=== PATIENT | female | born 1955 | race Hispanic/Latino ===

== ENCOUNTER 2019-12-16 14:56 | Inpatient (IN) | payer MEDICARE ==
[2019-12-16] MEDS ORDERED: DEXTROSE 50% IN WATER (25GM) 50 ML SYRINGE IV ONE ×2 (15:00→22:55)
[2019-12-16] MEDS ORDERED: SODIUM BICARB 8.4% 50 MEQ/50 ML SYRINGE IV ONE ×2 (15:00→19:25)
[2019-12-16] MEDS ORDERED: CALCIUM CHLORIDE 1,000 MG/10 ML SYRINGE IV ONE (15:00)
[2019-12-16] MEDS ORDERED: ATROPINE 0.1% (1 MG/10 ML) CARDIAC SYRINGE ONE (15:00)
[2019-12-16] MEDS ORDERED: EPINEPHrine 1:10,000 1 MG/10 ML SYRINGE ONE ×2 (15:00→19:25)
[2019-12-16] MEDS ORDERED: ALBUTEROL 2.5 MG/3 ML NEBU IH ONE ×8 (15:20→17:11)
[2019-12-16] MEDS ORDERED: NORepinephrine/NS 4 MG-250 ML 4 MG/250 ML BAG IV ONE ×2 (15:36→18:22)
[2019-12-16] MEDS ORDERED: NORepinephrine/NS 4 MG-250 ML 4 MG/250 ML BAG IV SCH ×2 (15:40→18:30)
[2019-12-16 15:58] LABS: Hematocrit 21.2 % (30.3-42.9); Hemoglobin 7.2 gm/dl (10.1-14.3); Mean Corpuscular HGB Conc 34 % (30-34); Mean Corpuscular Volume 88 fl (79-97); Platelet Count 141 K/mm3 (140-440); Red Blood Count 2.42 M/mm3 (3.65-5.03); Red Cell Distribution Width 15.1 % (13.2-15.2)
--- NOTE | 2019-12-16 16:00 | Emergency Department Report ---
HPI - General Time Seen by Provider: 12/16/19 15:28 - HPI HPI: Room 18 The patient is a 64-year-old female present with a chief complaint of decreased responsiveness. The patient's last known well time was approximate 5 days ago when the patient's son spoke with her over the phone. The son states he had not heard from her so he sent someone to check on the patient and the patient was found unresponsive lying on her floor covered in dark-colored stool. Is uncertain how long she has been in this position. EMS transported the patient states she had agonal respirations. Upon arrival to the ED the patient had agonal respirations and was not responding and had a decreased gag reflex, subsequently the decision to intubate using RSI was made. After intubation the patient became bradycardic and then went into cardiac arrest. ACLS protocol were initiated including suspected hyperkalemia from rhabdomyolysis and GI bleed with subsequent return of spontaneous circulation. The patient briefly arrested a second time there was return of spontaneous circulation. ED Past Medical Hx - Past Medical History Hx Hypertension: Yes Hx Psychiatric Treatment: Yes (Paranoid schizophrenia) - Surgical History Past Surgical History?: No - Family History Family history: no significant - Social History Smoking Status: Current Every Day Smoker Substance Use Type: None ED Review of Systems ROS: Stated complaint: PHIL Other details as noted in HPI Comment: Unobtainable due to pts medical conditions Physical Exam - Physical Exam Physical Exam: GENERAL: The patient is well-developed pale female with agonal respirations on the stretcher not responding. Patient has a dark-colored dried liquid surrounding her mouth and on her clothing HEENT: Normocephalic. Atraumatic. Extraocular motions are intact. Patient has moist mucous membranes. NECK: Trachea midline CHEST/LUNGS: Clear to auscultation. Agonal respiration HEART/CARDIOVASCULAR: Regular. There is no tachycardia. There is no gallop rub or murmur. ABDOMEN: Abdomen is soft, nontender. Patient has normal bowel sounds. There is no abdominal distention. SKIN: Patient is pale NEURO: The patient is lethargic with agonal respiration MUSCULOSKELETAL: There is no evidence of acute injury. ED Course - Consultations Consultation #1: 12/16/19 16:17 Nephrology paged 12/16/19 16:[address] Greene-recommends Kayexalate 30 g. States she will reach out to vascular surgery to place a Vas-Cath and initiate hemodialysis - Central Line Placement Right Femoral Consent Obtained: emergent situation Time Out Performed: No Patient Placed on Monitor/Pulse Ox: Yes MD Prep: mask, gown, gloves Central Line Prep: Chlorhexidine scrub Local Anesthesia Used: Lidocaine 1% Amount of Anesthesia Used (mls): 3 Ultrasound Used for Placement: No Central Line Lumen Inserted: triple Bloods Obtained for Lab: Yes Central Line Position: good blood return, all ports aspirated, flus, other (Line secured with adhesive) Dressing Applied: Tegaderm Patient Tolerated Procedure: no complications Complications: none - Intubation Time Out Performed: Yes Sedative: Etomidate Mg Given: 20 Paralytic: Succinylcholine Mg Given: 100 (Patient was also given lidocaine 100 mg IV) Laryngoscope: Renee Size: 3 ET Tube Size: 7 Tube Secured Depth (cm): 21 Tube Secured Location: lips Tube Placement Confirmation: visualized tube passing t, equal breath sounds bilat, no breath sounds over epi, confirmation by capnometr Patient Tolerated Procedure: no complications Intubation Complications: none ED Medical Decision Making - Lab Data Result diagrams: 12/16/19 15:49 12/16/19 15:49 Laboratory Tests 12/16/19 12/16/19 12/16/19 15:45 15:49 15:49 WBC 12.0 H RBC 2.42 L Hgb 7.2 L Hct 21.2 L MCV 88 MCH 30 MCHC 34 RDW 15.1 Plt Count 141 Add Manual Diff Complete Total Counted 100 Seg Neuts % (Manual) 76.0 H Band Neutrophils % 0 Lymphocytes % (Manual) 17.0 Reactive Lymphs % (Man) 0 Monocytes % (Manual) 7.0 Eosinophils % (Manual) 0 Basophils % (Manual) 0 Metamyelocytes % 0 Myelocytes % 0 Promyelocytes % 0 Blast Cells % 0 Nucleated RBC % Not Reportable Seg Neutrophils # Man 9.1 H Band Neutrophils # 0.0 Lymphocytes # (Manual) 2.0 Abs React Lymphs (Man) 0.0 Monocytes # (Manual) 0.8 Eosinophils # (Manual) 0.0 Basophils # (Manual) 0.0 Metamyelocytes # 0.0 Myelocytes # 0.0 Promyelocytes # 0.0 Blast Cells # 0.0 WBC Morphology Not Reportable Hypersegmented Neuts Not Reportable Hyposegmented Neuts Not Reportable Hypogranular Neuts Not Reportable Smudge Cells Not Reportable Toxic Granulation Not Reportable Toxic Vacuolation Not Reportable Dohle Bodies Not Reportable Pelger-Huet Anomaly Not Reportable Babar Rods Not Reportable Platelet Estimate Not Reportable Clumped Platelets Not Reportable Plt Clumps, EDTA Not Reportable Large Platelets Not Reportable Giant Platelets Not Reportable Platelet Satelliting Not Reportable Plt Morphology Comment Not Reportable RBC Morphology Not Reportable Dimorphic RBCs Not Reportable Polychromasia Not Reportable Hypochromasia 1+ Poikilocytosis Not Reportable Anisocytosis 1+ Microcytosis Not Reportable Macrocytosis Not Reportable Spherocytes Not Reportable Pappenheimer Bodies Not Reportable Sickle Cells Not Reportable Target Cells Not Reportable Tear Drop Cells Not Reportable Ovalocytes Not Reportable Helmet Cells Not Reportable [place] Bodies Not Reportable Flasher Rings Not Reportable [place] Cells Not Reportable Bite Cells Not Reportable Crenated Cell Not Reportable Elliptocytes Not Reportable Acanthocytes (Spur) Not Reportable Rouleaux Not Reportable Hemoglobin C Crystals Not Reportable Schistocytes Not Reportable Malaria parasites Not Reportable Hernandez Bodies Not Reportable Hem Pathologist Commnt No PT INR APTT Sodium Potassium Chloride Carbon Dioxide Anion Gap Creatinine Estimated GFR Glucose POC Glucose 120 H Calcium Total Bilirubin AST ALT Alkaline Phosphatase Ammonia Total Creatine Kinase CK-MB (CK-2) CK-MB (CK-2) Rel Index Troponin T NT-Pro-B Natriuret Pep Total Protein Albumin Albumin/Globulin Ratio Valproic Acid Plasma/Serum Alcohol Blood Type B POSITIVE Antibody Screen Negative Crossmatch See Detail 12/16/19 12/16/19 12/16/19 15:49 15:49 15:49 WBC RBC Hgb Hct MCV MCH MCHC RDW Plt Count Add Manual Diff Total Counted Seg Neuts % (Manual) Band Neutrophils % Lymphocytes % (Manual) Reactive Lymphs % (Man) Monocytes % (Manual) Eosinophils % (Manual) Basophils % (Manual) Metamyelocytes % Myelocytes % Promyelocytes % Blast Cells % Nucleated RBC % Seg Neutrophils # Man Band Neutrophils # Lymphocytes # (Manual) Abs React Lymphs (Man) Monocytes # (Manual) Eosinophils # (Manual) Basophils # (Manual) Metamyelocytes # Myelocytes # Promyelocytes # Blast Cells # WBC Morphology Hypersegmented Neuts Hyposegmented Neuts Hypogranular Neuts Smudge Cells Toxic Granulation Toxic Vacuolation Dohle Bodies Pelger-Huet Anomaly Babar Rods Platelet Estimate Clumped Platelets Plt Clumps, EDTA Large Platelets Giant Platelets Platelet Satelliting Plt Morphology Comment RBC Morphology Dimorphic RBCs Polychromasia Hypochromasia Poikilocytosis Anisocytosis Microcytosis Macrocytosis Spherocytes Pappenheimer Bodies Sickle Cells Target Cells Tear Drop Cells Ovalocytes Helmet Cells [place] Bodies Flasher Rings [place] Cells Bite Cells Crenated Cell Elliptocytes Acanthocytes (Spur) Rouleaux Hemoglobin C Crystals Schistocytes Malaria parasites Hernandez Bodies Hem Pathologist Commnt PT 24.9 H INR 2.20 H APTT 33.3 Sodium 142 Potassium 7.1 H* Chloride 75.0 L Carbon Dioxide 19 L Anion Gap 55 Creatinine 10.3 H Estimated GFR 4 Glucose 499 H POC Glucose Calcium > 13.0 H* Total Bilirubin 0.40 AST 102 H ALT 32 Alkaline Phosphatase 91 Ammonia 347.0 H Total Creatine Kinase 581 H CK-MB (CK-2) 12.1 H CK-MB (CK-2) Rel Index 2.0 Troponin T 0.127 H* NT-Pro-B Natriuret Pep 86831 H Total Protein 3.2 L Albumin 1.2 L Albumin/Globulin Ratio 0.6 Valproic Acid Plasma/Serum Alcohol Blood Type Antibody Screen Crossmatch 12/16/19 12/16/19 12/16/19 15:49 15:49 16:20 WBC RBC Hgb Hct MCV MCH MCHC RDW Plt Count Add Manual Diff Total Counted Seg Neuts % (Manual) Band Neutrophils % Lymphocytes % (Manual) Reactive Lymphs % (Man) Monocytes % (Manual) Eosinophils % (Manual) Basophils % (Manual) Metamyelocytes % Myelocytes % Promyelocytes % Blast Cells % Nucleated RBC % Seg Neutrophils # Man Band Neutrophils # Lymphocytes # (Manual) Abs React Lymphs (Man) Monocytes # (Manual) Eosinophils # (Manual) Basophils # (Manual) Metamyelocytes # Myelocytes # Promyelocytes # Blast Cells # WBC Morphology Hypersegmented Neuts Hyposegmented Neuts Hypogranular Neuts Smudge Cells Toxic Granulation Toxic Vacuolation Dohle Bodies Pelger-Huet Anomaly Babar Rods Platelet Estimate Clumped Platelets Plt Clumps, EDTA Large Platelets Giant Platelets Platelet Satelliting Plt Morphology Comment RBC Morphology Dimorphic RBCs Polychromasia Hypochromasia Poikilocytosis Anisocytosis Microcytosis Macrocytosis Spherocytes Pappenheimer Bodies Sickle Cells Target Cells Tear Drop Cells Ovalocytes Helmet Cells [place] Bodies Flasher Rings [place] Cells Bite Cells Crenated Cell Elliptocytes Acanthocytes (Spur) Rouleaux Hemoglobin C Crystals Schistocytes Malaria parasites Hernandez Bodies Hem Pathologist Commnt PT INR APTT Sodium Potassium Chloride Carbon Dioxide Anion Gap Creatinine Estimated GFR Glucose POC Glucose 256 H Calcium Total Bilirubin AST ALT Alkaline Phosphatase Ammonia Total Creatine Kinase CK-MB (CK-2) CK-MB (CK-2) Rel Index Troponin T NT-Pro-B Natriuret Pep Total Protein Albumin Albumin/Globulin Ratio Valproic Acid 6.2 L Plasma/Serum Alcohol < 0.01 Blood Type Antibody Screen Crossmatch - EKG Data -: EKG Interpreted by Me Rate: normal - EKG Data When compared to previous EKG there are: previous EKG unavailable Interpretation: other (Junctional rhythm at 79 bpm) - Radiology Data Radiology results: image reviewed (Chest x-ray) interpreted by me: Chest x-ray-ET tube and NG tube in appropriate position. No focal infiltrates, no pneumothorax - Differential Diagnosis GI bleed, rhabdomyolysis, renal failure, hyperkalemia Critical Care Time: Yes Critical care time in (mins) excluding proc time.: 90 Critical care attestation.: If time is entered above; I have spent that time in minutes in the direct care of this critically ill patient, excluding procedure time. ED Disposition Clinical Impression: Acute renal failure, Hyperkalemia, GI bleed Disposition: OP ADMIT IP TO THIS HOSP Is pt being admited?: Yes Does the pt Need Aspirin: No Condition: Critical Time of Disposition: 16:30 (Hospitalist notified (Dr Carranza))
[2019-12-16] MEDS ORDERED: SODIUM CHLORIDE 0.9% 1000 ML 1,000 ML IV ONE (16:01)
[2019-12-16 16:10] LABS: INR 2.2 (0.87-1.13); Partial Thromboplastin Time 33.3 Sec. (24.2-36.6)
[2019-12-16 16:13] LABS: Creatine Kinase MB 12.1 ng/mL (0.0-4.0)
[2019-12-16 16:16] LABS: Alanine Aminotransferase 32 units/L (7-56); Albumin 1.2 g/dL (3.9-5); Hemolysis Index 19
[2019-12-16 16:20] LABS: Calcium > 13.0 mg/dL (8.4-10.2)
[2019-12-16] MEDS ORDERED: SODIUM POLYSTYRENE 15 GM/60 ML ORAL LIQD PR ONE (16:26)
[2019-12-16 16:47] LABS: Anisocytosis 1+; Basophils % (Manual) 0 % (0.0-1.8); Eosinophils % (Manual) 0 % (0.0-4.3); Total Cells Counted 100
[2019-12-16 16:48] LABS: Hypochromasia 1+
--- NOTE | 2019-12-16 16:49 | XRay Report ---
CHEST 1 VIEW 12/16/2019 4:21 PM INDICATION / CLINICAL INFORMATION: Status post intubation. COMPARISON: None available. FINDINGS: SUPPORT DEVICES: The tip of the ET tube is about 4 cm above the maria dolores. NG tube is seen extending bel ow the diaphragm. HEART / MEDIASTINUM: Normal heart size. Atherosclerosis in the thoracic aorta. LUNGS / PLEURA: No significant pulmonary or pleural abnormality. No pneumothorax. ADDITIONAL FINDINGS: No significant additional findings. IMPRESSION: 1. ET tube appears well positioned radiographically. Signer Name: Lavon Ruiz MD Signed: 12/16/2019 4:44 PM Workstation Name: [id number]
[2019-12-16 16:54] LABS: Chol/HDL Ratio 5.62 %; HDL Cholesterol 8 mg/dL (40-59); LDL Cholesterol,Direct 12 mg/dL (50-130)
[2019-12-16] MEDS ORDERED: SODIUM CHLORIDE 0.9% 100 ML IV PRN (16:54)
--- NOTE | 2019-12-16 16:58 | Consultation ---
History of Present Illness - Reason for Consult Consult date: 12/16/19 acute renal failure, hyperkalemia - History of Present Illness From medical records: Patient is a 64-year-old female present with a chief complaint of decreased responsiveness. The patient's last known well time was approximate 5 days ago when the patient's son spoke with her over the phone. The son states he had not heard from her so he sent someone to check on the patient and the patient was found unresponsive lying on her floor covered in dark-colored stool. It is uncertain how long she has been in this position. EMS was called to home and transported the patient. Per EMS, patient w/ agonal respirations. Upon arrival to the ED the patient noted to have agonal respirations and was not responding, also had a decreased gag reflex. Patient was intubated. Following intubation, patient became bradycardic and then went into cardiac arrest. ACLS protocol were initiated including suspected hyperkalemia from rhabdomyolysis and GI bleed with subsequent return of spontaneous circulation. The patient briefly arrested a second time there was return of spontaneous circulation. Labs notable for K 7.1, SCr 10.3, and Ca >13. Nephrology consulted by the ED. Past History Past Medical History: hypertension Past Surgical History: thyroidectomy (partial), total hip replacement Social history: Lives alone, smoking Family history: no significant family history Medications and Allergies Allergies Allergy/AdvReac Type Severity Reaction Status Date / Time No Known Allergies Allergy Unverified 12/16/19 16:30 Active Meds: Active Medications Sodium Chloride (Nacl 0.9% 1000 Ml) 1,000 mls @ 999 mls/hr IV ONCE ONE Stop: 12/16/19 17:01 Last Admin: 12/16/19 15:42 Dose: 999 mls/hr Documented by: Review of Systems ROS unobtainable: due to endotracheal tube Exam - Vital Signs Vital signs: Vital Signs Resp Pulse Ox 16 99 12/16/19 16:28 12/16/19 16:28 - General Appearance General appearance: intubated EENT: other (ETT in place) Respiratory: Other (coarse breath sounds) Heart: regular, tachycardia Gastrointestinal: Present: normal. Absent: distended Integumentary: no rash Musculoskeletal: Present: other (no edema) Results - Lab Results 12/16/19 15:49 03/16/20 15:49 Most recent lab results Calcium > 13.0 mg/dL (8.4-10.2) H* 12/16/19 15:49 Assessment and Plan Impression: * Acute kidney injury secondary to ATN * Hyperkalemia * s/p Cardiac arrest, likely secondary to hyperkalemia * Anemia * Hypercalcemia - patient s/p multiple rounds of CaCl per ED MD * Coagulopathy Plan: * Case discussed with Dr. Miller via phone - consulted for vascath placement * STAT HD ordered - to follow vascath insertion. Dialysis propellant charge loader and RN video control operator notified * UF as tolerated - no UF ordered today due to hemodynamic instability * Pressors prn to maintain MAP>65 * Medical management of hyperkalemia in the interim * Transfusion of pRBC per primary team * Dose medications for renal function * Avoid potential nephrotoxins * Son at bedside - updated
[2019-12-16] MEDS ORDERED: DOPamine/D5W 800 MG/250 ML 800 MG/250 ML BAG IV ONE (17:07)
[2019-12-16] MEDS ORDERED: INSULIN REGULAR, HUMAN 100 UNITS/1 ML IV ONE ×2 (17:10)
[2019-12-16 17:23] LABS: BUN/Creatinine Ratio 19; Blood Urea Nitrogen 200 mg/dL (7-17)
[2019-12-16] MEDS ORDERED: HYDROmorphone 1 MG/1 ML INJ IV PRN (17:46)
[2019-12-16] MEDS ORDERED: ACETAMINOPHEN 325 MG TAB PO PRN (17:46)
[2019-12-16] MEDS ORDERED: ONDANSETRON 4 MG/2 ML INJ IV PRN (17:46)
--- NOTE | 2019-12-16 17:46 | History and Physical Report ---
History of Present Illness Date of examination: 12/16/19 Date of admission: 12/16/19 Chief complaint: Unresponsie for unknown time History of present illness: 64-year-old female present with a chief complaint of decreased responsiveness. The patient's last known well time was approximate 5 days ago when the patient's son spoke with her over the phone. The son states he had not heard from her so he sent someone to check on the patient and the patient was found unresponsive lying on her floor covered in dark-colored stool. Is uncertain how long she has been in this position. EMS transported the patient states she had agonal respirations. Upon arrival to the ED the patient had agonal respirations and was not responding and had a decreased gag reflex, subsequently the decision to intubate using RSI was made. After intubation the patient became bradycardic and then went into cardiac arrest. ACLS protocol were initiated including suspected hyperkalemia from rhabdomyolysis and GI bleed with subsequent return of spontaneous circulation. The patient briefly arrested a second time there was return of spontaneous circulation. Past Medical History Hx Hypertension: Yes Hx Psychiatric Treatment: Yes (Paranoid schizophrenia) Surgical History Past Surgical History?: No Family History Family history: no significant Social History Smoking Status: Current Every Day Smoker Substance Use Type: None Family Hx Htn Review of Systems ROS: Stated complaint: PHIL Other details as noted in HPI Comment: Unobtainable due to pts medical conditions Past History Past Medical History: hypertension Past Surgical History: thyroidectomy (partial), total hip replacement Social history: Lives alone, smoking Family history: no significant family history Medications and Allergies Allergies Allergy/AdvReac Type Severity Reaction Status Date / Time No Known Allergies Allergy Unverified 12/16/19 16:30 Home Medications Medication Instructions Recorded Confirmed Last Taken Type Unobtainable 12/16/19 12/16/19 Unknown History Active Meds: Active Medications Sodium Chloride (Nacl 0.9%) 100 mls @ 999 mls/hr IV TYRON PRN PRN Reason: Hypotension Dopamine HCl/Dextrose (Intropin Drip 800 Mg/D5w 250 Ml) 800 mg in 250 mls @ 2.4 mls/hr IV TITR ONE; Protocol Stop: 12/21/19 01:16 Last Titration: 12/16/19 17:41 Dose: 6 mcg/kg/min, 7.2 mls/hr Documented by: Norepinephrine (Levophed Drip 4 Mg/Ns 250 Ml) 4 mg in 250 mls @ 7.5 mls/hr IV TITR MARTIR; Protocol Last Titration: 12/16/19 16:40 Dose: 30 mcg/min, 112.5 mls/hr Documented by: Exam - Physical Exam Narrative exam: Patient intubated - Constitutional Vitals: Temp Pulse Resp BP Pulse Ox 80 20 99 12/16/19 16:47 12/16/19 16:47 12/16/19 16:28 General appearance: Present: mild distress - EENT Eyes: Present: PERRL ENT: hearing intact, clear oral mucosa - Neck Neck: Present: supple, normal ROM - Respiratory Respiratory effort: normal Respiratory: bilateral: CTA - Cardiovascular Heart rate: 98 Rhythm: regular Heart Sounds: Present: S1 & S2. Absent: rub, click - Extremities Extremities: no ischemia, pulses intact, pulses symmetrical, No edema Peripheral Pulses: within normal limits - Abdominal General gastrointestinal: Present: soft, non-tender, non-distended, normal bowel sounds Female genitourinary: Present: normal - Integumentary Integumentary: Present: clear, warm, dry - Psychiatric Psychiatric: other (Unresponsive) - Neurologic Neurologic: CNII-XII intact, moves all extremities - Allied Health Allied health notes reviewed: nursing, case management Results - Labs CBC & Chem 7: 12/16/19 15:49 12/16/19 19:45 Labs: Laboratory Last Values WBC 12.0 K/mm3 (4.5-11.0) H 12/16/19 15:49 RBC 2.42 M/mm3 (3.65-5.03) L 12/16/19 15:49 Hgb 7.2 gm/dl (10.1-14.3) L 12/16/19 15:49 Hct 21.2 % (30.3-42.9) L 12/16/19 15:49 MCV 88 fl (79-97) 12/16/19 15:49 MCH 30 pg (28-32) 12/16/19 15:49 MCHC 34 % (30-34) 12/16/19 15:49 RDW 15.1 % (13.2-15.2) 12/16/19 15:49 Plt Count 141 K/mm3 (140-440) 12/16/19 15:49 Add Manual Diff Complete 12/16/19 15:49 Total Counted 100 12/16/19 15:49 Seg Neuts % (Manual) 76.0 % (40.0-70.0) H 12/16/19 15:49 Band Neutrophils % 0 % 12/16/19 15:49 Lymphocytes % (Manual) 17.0 % (13.4-35.0) 12/16/19 15:49 Reactive Lymphs % (Man) 0 % 12/16/19 15:49 Monocytes % (Manual) 7.0 % (0.0-7.3) 12/16/19 15:49 Eosinophils % (Manual) 0 % (0.0-4.3) 12/16/19 15:49 Basophils % (Manual) 0 % (0.0-1.8) 12/16/19 15:49 Metamyelocytes % 0 % 12/16/19 15:49 Myelocytes % 0 % 12/16/19 15:49 Promyelocytes % 0 % 12/16/19 15:49 Blast Cells % 0 % 12/16/19 15:49 Nucleated RBC % Not Reportable 12/16/19 15:49 Seg Neutrophils # Man 9.1 K/mm3 (1.8-7.7) H 12/16/19 15:49 Band Neutrophils # 0.0 K/mm3 12/16/19 15:49 Lymphocytes # (Manual) 2.0 K/mm3 (1.2-5.4) 12/16/19 15:49 Abs React Lymphs (Man) 0.0 K/mm3 12/16/19 15:49 Monocytes # (Manual) 0.8 K/mm3 (0.0-0.8) 12/16/19 15:49 Eosinophils # (Manual) 0.0 K/mm3 (0.0-0.4) 12/16/19 15:49 Basophils # (Manual) 0.0 K/mm3 (0.0-0.1) 12/16/19 15:49 Metamyelocytes # 0.0 K/mm3 12/16/19 15:49 Myelocytes # 0.0 K/mm3 12/16/19 15:49 Promyelocytes # 0.0 K/mm3 12/16/19 15:49 Blast Cells # 0.0 K/mm3 12/16/19 15:49 WBC Morphology Not Reportable 12/16/19 15:49 Hypersegmented Neuts Not Reportable 12/16/19 15:49 Hyposegmented Neuts Not Reportable 12/16/19 15:49 Hypogranular Neuts Not Reportable 12/16/19 15:49 Smudge Cells Not Reportable 12/16/19 15:49 Toxic Granulation Not Reportable 12/16/19 15:49 Toxic Vacuolation Not Reportable 12/16/19 15:49 Dohle Bodies Not Reportable 12/16/19 15:49 Pelger-Huet Anomaly Not Reportable 12/16/19 15:49 Babar Rods Not Reportable 12/16/19 15:49 Platelet Estimate Not Reportable 12/16/19 15:49 Clumped Platelets Not Reportable 12/16/19 15:49 Plt Clumps, EDTA Not Reportable 12/16/19 15:49 Large Platelets Not Reportable 12/16/19 15:49 Giant Platelets Not Reportable 12/16/19 15:49 Platelet Satelliting Not Reportable 12/16/19 15:49 Plt Morphology Comment Not Reportable 12/16/19 15:49 RBC Morphology Not Reportable 12/16/19 15:49 Dimorphic RBCs Not Reportable 12/16/19 15:49 Polychromasia Not Reportable 12/16/19 15:49 Hypochromasia 1+ 12/16/19 15:49 Poikilocytosis Not Reportable 12/16/19 15:49 Anisocytosis 1+ 12/16/19 15:49 Microcytosis Not Reportable 12/16/19 15:49 Macrocytosis Not Reportable 12/16/19 15:49 Spherocytes Not Reportable 12/16/19 15:49 Pappenheimer Bodies Not Reportable 12/16/19 15:49 Sickle Cells Not Reportable 12/16/19 15:49 Target Cells Not Reportable 12/16/19 15:49 Tear Drop Cells Not Reportable 12/16/19 15:49 Ovalocytes Not Reportable 12/16/19 15:49 Helmet Cells Not Reportable 12/16/19 15:49 [place] Bodies Not Reportable 12/16/19 15:49 Calhan Rings Not Reportable 12/16/19 15:49 Helen Cells Not Reportable 12/16/19 15:49 Bite Cells Not Reportable 12/16/19 15:49 Crenated Cell Not Reportable 12/16/19 15:49 Elliptocytes Not Reportable 12/16/19 15:49 Acanthocytes (Spur) Not Reportable 12/16/19 15:49 Rouleaux Not Reportable 12/16/19 15:49 Hemoglobin C Crystals Not Reportable 12/16/19 15:49 Schistocytes Not Reportable 12/16/19 15:49 Malaria parasites Not Reportable 12/16/19 15:49 Hernandez Bodies Not Reportable 12/16/19 15:49 Hem Pathologist Commnt No 12/16/19 15:49 PT 24.9 Sec. (12.2-14.9) H 12/16/19 15:49 INR 2.20 (0.87-1.13) H 12/16/19 15:49 APTT 33.3 Sec. (24.2-36.6) 12/16/19 15:49 Sodium 142 mmol/L (137-145) 12/16/19 15:49 Potassium 7.1 mmol/L (3.6-5.0) H* 12/16/19 15:49 Chloride 75.0 mmol/L (98-107) L 12/16/19 15:49 Carbon Dioxide 19 mmol/L (22-30) L 12/16/19 15:49 Anion Gap 55 mmol/L 12/16/19 15:49 BUN 200 mg/dL (7-17) H 12/16/19 15:49 Creatinine 10.3 mg/dL (0.7-1.2) H 12/16/19 15:49 Estimated GFR 4 ml/min 12/16/19 15:49 BUN/Creatinine Ratio 19 % 12/16/19 15:49 Glucose 499 mg/dL (65-100) H 12/16/19 15:49 POC Glucose 256 (70-105) H 12/16/19 16:20 Calcium > 13.0 mg/dL (8.4-10.2) H* 12/16/19 15:49 Total Bilirubin 0.40 mg/dL (0.1-1.2) 12/16/19 15:49 AST 102 units/L (5-40) H 12/16/19 15:49 ALT 32 units/L (7-56) 12/16/19 15:49 Alkaline Phosphatase 91 units/L (35-129) 12/16/19 15:49 Ammonia 347.0 umol/L (25-60) H 12/16/19 15:49 Total Creatine Kinase 581 units/L (30-135) H 12/16/19 15:49 CK-MB (CK-2) 12.1 ng/mL (0.0-4.0) H 12/16/19 15:49 CK-MB (CK-2) Rel Index 2.0 (0-4) 12/16/19 15:49 Troponin T 0.127 ng/mL (0.00-0.029) H* 12/16/19 15:49 NT-Pro-B Natriuret Pep 56186 pg/mL (0-900) H 12/16/19 15:49 Total Protein 3.2 g/dL (6.3-8.2) L 12/16/19 15:49 Albumin 1.2 g/dL (3.9-5) L 12/16/19 15:49 Albumin/Globulin Ratio 0.6 % 12/16/19 15:49 Triglycerides 129 mg/dL (2-149) 12/16/19 15:49 Cholesterol 45 mg/dL (50-199) L 12/16/19 15:49 LDL Cholesterol Direct 12 mg/dL (50-130) L 12/16/19 15:49 HDL Cholesterol 8 mg/dL (40-59) L 12/16/19 15:49 Cholesterol/HDL Ratio 5.62 % 12/16/19 15:49 Valproic Acid 6.2 ug/mL (50-100) L 12/16/19 15:49 Plasma/Serum Alcohol < 0.01 % (0-0.07) 12/16/19 15:49 Blood Type B POSITIVE 12/16/19 15:49 Antibody Screen Negative 12/16/19 15:49 Crossmatch See Detail 12/16/19 15:49 - Imaging and Cardiology EKG: report reviewed (RBBb Abnormal T -Waves 79) Assessment and Plan Assessment and plan: Critical care time 45 minutes Advance Directives: Yes (Full code) VTE prophylaxis?: Chemical Plan of care discussed with patient/family: Yes - Patient Problems (1) Cardiac arrest Status: Acute Plan to address problem: Revived with ACLS protocol (2) SHIRLENE (acute kidney injury) Status: Acute Plan to address problem: Vas cath placed HD initiated but unable to yolerate.Suspended for time being (3) Septic shock Status: Acute Plan to address problem: IV pressors IV Cefepime and IV vancomycin (4) Hyperkalemia Status: Acute Plan to address problem: Treated (5) Advance care planning Status: Acute Plan to address problem: Discussed with son Melissa prognosis Wants full code
[2019-12-16] MEDS ORDERED: D5W/0.9% NACL 1,000 ML IV SCH (18:00)
[2019-12-16] MEDS ORDERED: LIP THERAPY VASELINE TP PRN (18:05)
[2019-12-16] MEDS ORDERED: fentaNYL 100 MCG/2 ML INJ IV PRN (18:05)
[2019-12-16] MEDS ORDERED: MINERAL OIL/PETROLATUM, WHITE OPHTH OINT 3.5 GM OU PRN (18:05)
--- NOTE | 2019-12-16 18:05 | Consultation ---
History of Present Illness Consult date: 12/16/19 Requesting physician: ALEKSEY REBOLLAR Reason for consult: other (Acute Hypoxemic Resp Failure; Severe Hyperkalemia) History of present illness: PCCM CONSULT NOTE (Full dictation # ) Please see dictated noted for full details Past History Past Medical History: hypertension Past Surgical History: thyroidectomy (partial), total hip replacement Social history: Lives alone, smoking Family history: no significant family history Medications and Allergies Allergies Allergy/AdvReac Type Severity Reaction Status Date / Time No Known Allergies Allergy Unverified 12/16/19 16:30 Active Meds: Active Medications Acetaminophen (Tylenol) 650 mg PO Q4H PRN PRN Reason: Pain MILD(1-3)/Fever >100.5/KEEN Heparin Sodium (Porcine) (Heparin) 5,000 unit SUB-Q Q12HR MARTIR Hydromorphone HCl (Dilaudid) 0.25 mg IV Q3H PRN PRN Reason: Pain, Moderate (4-6) Sodium Chloride (Nacl 0.9%) 100 mls @ 999 mls/hr IV TYRON PRN PRN Reason: Hypotension Dopamine HCl/Dextrose (Intropin Drip 800 Mg/D5w 250 Ml) 800 mg in 250 mls @ 2.4 mls/hr IV TITR ONE; Protocol Stop: 12/21/19 01:16 Last Titration: 12/16/19 17:41 Dose: 6 mcg/kg/min, 7.2 mls/hr Documented by: Norepinephrine (Levophed Drip 4 Mg/Ns 250 Ml) 4 mg in 250 mls @ 7.5 mls/hr IV TITR MARTIR; Protocol Last Titration: 12/16/19 16:40 Dose: 30 mcg/min, 112.5 mls/hr Documented by: Dextrose/Sodium Chloride (D5ns) 1,000 mls @ 100 mls/hr IV DIRECT MARTIR Ondansetron HCl (Zofran) 4 mg IV Q8H PRN PRN Reason: Nausea And Vomiting Sodium Chloride (Sodium Chloride Flush Syringe 10 Ml) 10 ml IV BID MARTIR Sodium Chloride (Sodium Chloride Flush Syringe 10 Ml) 10 ml IV PRN PRN PRN Reason: LINE FLUSH Physical Examination Vital signs: Vital Signs Pulse Resp BP 72 20 76/40 12/16/19 15:46 12/16/19 15:46 12/16/19 15:46 Results - Laboratory Findings CBC and BMP: 12/16/19 15:49 12/16/19 15:49 PT/INR, D-dimer PT 24.9 Sec. (12.2-14.9) H 12/16/19 15:49 INR 2.20 (0.87-1.13) H 12/16/19 15:49 Abnormal lab findings: Abnormal Labs 12/16/19 12/16/19 12/16/19 15:45 15:49 15:49 WBC 12.0 H RBC 2.42 L Hgb 7.2 L Hct 21.2 L Seg Neuts % (Manual) 76.0 H Seg Neutrophils # Man 9.1 H PT INR Potassium Chloride Carbon Dioxide BUN Creatinine Glucose POC Glucose 120 H Calcium AST Ammonia Total Creatine Kinase CK-MB (CK-2) Troponin T NT-Pro-B Natriuret Pep Total Protein Albumin Cholesterol LDL Cholesterol Direct HDL Cholesterol Valproic Acid Crossmatch See Detail 12/16/19 12/16/19 12/16/19 15:49 15:49 15:49 WBC RBC Hgb Hct Seg Neuts % (Manual) Seg Neutrophils # Man PT 24.9 H INR 2.20 H Potassium 7.1 H* Chloride 75.0 L Carbon Dioxide 19 L BUN 200 H Creatinine 10.3 H Glucose 499 H POC Glucose Calcium > 13.0 H* AST 102 H Ammonia 347.0 H Total Creatine Kinase 581 H CK-MB (CK-2) 12.1 H Troponin T 0.127 H* NT-Pro-B Natriuret Pep 87211 H Total Protein 3.2 L Albumin 1.2 L Cholesterol 45 L LDL Cholesterol Direct 12 L HDL Cholesterol 8 L Valproic Acid Crossmatch 12/16/19 12/16/19 15:49 16:20 WBC RBC Hgb Hct Seg Neuts % (Manual) Seg Neutrophils # Man PT INR Potassium Chloride Carbon Dioxide BUN Creatinine Glucose POC Glucose 256 H Calcium AST Ammonia Total Creatine Kinase CK-MB (CK-2) Troponin T NT-Pro-B Natriuret Pep Total Protein Albumin Cholesterol LDL Cholesterol Direct HDL Cholesterol Valproic Acid 6.2 L Crossmatch
[2019-12-16] MEDS ORDERED: fentaNYL DRIP Premix 2,000 MCG/100 ML BAG IV ONE (18:09)
[2019-12-16 18:24] LABS: Hepatitis B Surface Antigen Non-Reactive (Negative); Hepatitis C Virus Antibody Non-Reactive (NonReactive)
[2019-12-16 18:45] LABS: ABG Base Excess -17.9 mmol/L (-2.0-3.0); ABG Oxygen Saturation 99.5 % (95.0-99.0); ABG PCO2 30.7 mm Hg
[2019-12-16] MEDS ORDERED: fentaNYL DRIP Premix 2,000 MCG/100 ML BAG IV SCH (19:00)
--- NOTE | 2019-12-16 19:04 | Consultation ---
History of Present Illness - Reason for Consult Consult date: 12/16/19 Vascath Insertion Requesting physician: ALEKSEY REBOLLAR - History of Present Illness The history is obtained from chart review and from the son. Per report the son went to check on his mother because he had not heard from her in several days. Upon entering the home he found his mother lying in dark-colored stool and unresponsive. He called EMS who transported her to [facility] emergency department. Upon evaluation in the emergency room the patient was intubated for decreased mental status and agonal breathing. Upon intubation the patient became bradycardic and ACLS protocol was initiated. The patient regained a rhythm and labs revealed acute renal failure with hyperkalemia. Medical management of hyperkalemia was initiated and I was consulted for [facility] of a Vas-Cath. Past History Past Medical History: hypertension Past Surgical History: thyroidectomy (partial), total hip replacement Social history: Lives alone, smoking Family history: no significant family history Medications and Allergies Allergies Allergy/AdvReac Type Severity Reaction Status Date / Time No Known Allergies Allergy Unverified 12/16/19 16:30 Active Meds: Active Medications Acetaminophen (Tylenol) 650 mg PO Q4H PRN PRN Reason: Pain MILD(1-3)/Fever >100.5/KEEN Fentanyl (Sublimaze) 50 mcg IV Q10MIN PRN PRN Reason: ANALGESIA Heparin Sodium (Porcine) (Heparin) 5,000 unit SUB-Q Q12HR MARTIR Hydromorphone HCl (Dilaudid) 0.25 mg IV Q3H PRN PRN Reason: Pain, Moderate (4-6) Hydrophilic Ointment (Vaseline Lip Therapy) 1 applic TP Q2HR PRN PRN Reason: Dry Lips Sodium Chloride (Nacl 0.9%) 100 mls @ 999 mls/hr IV TYRON PRN PRN Reason: Hypotension Dopamine HCl/Dextrose (Intropin Drip 800 Mg/D5w 250 Ml) 800 mg in 250 mls @ 2.4 mls/hr IV TITR ONE; Protocol Stop: 12/21/19 01:16 Last Titration: 12/16/19 17:41 Dose: 6 mcg/kg/min, 7.2 mls/hr Documented by: Norepinephrine (Levophed Drip 4 Mg/Ns 250 Ml) 4 mg in 250 mls @ 7.5 mls/hr IV TITR MARTIR; Protocol Last Titration: 12/16/19 16:40 Dose: 30 mcg/min, 112.5 mls/hr Documented by: Dextrose/Sodium Chloride (D5ns) 1,000 mls @ 100 mls/hr IV DIRECT MARTIR Fentanyl Citrate (Fentanyl Drip Premix) 2,000 mcg in 100 mls @ 3.2 mls/hr IV TITR MARTIR; Protocol Multi-Ingred Cream/Lotion/Oil/Oint (Artificial Tears Ophth Oint) 1 applic OU Q4HR PRN PRN Reason: Dry Eye(s) Ondansetron HCl (Zofran) 4 mg IV Q8H PRN PRN Reason: Nausea And Vomiting Sodium Chloride (Sodium Chloride Flush Syringe 10 Ml) 10 ml IV BID MARTIR Sodium Chloride (Sodium Chloride Flush Syringe 10 Ml) 10 ml IV PRN PRN PRN Reason: LINE FLUSH Review of Systems ROS unobtainable: due to endotracheal tube Exam - Constitutional Vitals: Temp Pulse Resp BP Pulse Ox 86.4 F L 138 H 17 73/49 99 12/16/19 15:28 12/16/19 18:11 12/16/19 18:11 12/16/19 18:11 12/16/19 16:28 General appearance: Present: other (Intubated) - Respiratory Respiratory effort: other (Ventilator dependent) - Cardiovascular Rhythm: other (Tachycardic with peaked T waves) - Extremities Extremity abnormal: cyanosis (Of all digits) - Abdominal General gastrointestinal: Present: soft, distended Results - Labs CBC & Chem 7: 12/16/19 15:49 12/16/19 15:49 Labs: Abnormal lab results 12/16/19 12/16/19 12/16/19 Range/Units 15:45 15:49 15:49 WBC 12.0 H (4.5-11.0) K/mm3 RBC 2.42 L (3.65-5.03) M/mm3 Hgb 7.2 L (10.1-14.3) gm/dl Hct 21.2 L (30.3-42.9) % Seg Neuts % (Manual) 76.0 H (40.0-70.0) % Seg Neutrophils # Man 9.1 H (1.8-7.7) K/mm3 PT (12.2-14.9) Sec. INR (0.87-1.13) ABG HCO3 (20.0-26.0) mmol/L ABG O2 Saturation (95.0-99.0) % ABG Base Excess (-2.0-3.0) mmol/L Potassium (3.6-5.0) mmol/L Chloride (98-107) mmol/L Carbon Dioxide (22-30) mmol/L BUN (7-17) mg/dL Creatinine (0.7-1.2) mg/dL Glucose (65-100) mg/dL POC Glucose 120 H (70-105) Calcium (8.4-10.2) mg/dL AST (5-40) units/L Ammonia (25-60) umol/L Total Creatine Kinase (30-135) units/L CK-MB (CK-2) (0.0-4.0) ng/mL Troponin T (0.00-0.029) ng/mL NT-Pro-B Natriuret Pep (0-900) pg/mL Total Protein (6.3-8.2) g/dL Albumin (3.9-5) g/dL Cholesterol (50-199) mg/dL LDL Cholesterol Direct (50-130) mg/dL HDL Cholesterol (40-59) mg/dL Valproic Acid (50-100) ug/mL Crossmatch See Detail 12/16/19 12/16/19 12/16/19 Range/Units 15:49 15:49 15:49 WBC (4.5-11.0) K/mm3 RBC (3.65-5.03) M/mm3 Hgb (10.1-14.3) gm/dl Hct (30.3-42.9) % Seg Neuts % (Manual) (40.0-70.0) % Seg Neutrophils # Man (1.8-7.7) K/mm3 PT 24.9 H (12.2-14.9) Sec. INR 2.20 H (0.87-1.13) ABG HCO3 (20.0-26.0) mmol/L ABG O2 Saturation (95.0-99.0) % ABG Base Excess (-2.0-3.0) mmol/L Potassium 7.1 H* (3.6-5.0) mmol/L Chloride 75.0 L (98-107) mmol/L Carbon Dioxide 19 L (22-30) mmol/L BUN 200 H (7-17) mg/dL Creatinine 10.3 H (0.7-1.2) mg/dL Glucose 499 H (65-100) mg/dL POC Glucose (70-105) Calcium > 13.0 H* (8.4-10.2) mg/dL AST 102 H (5-40) units/L Ammonia 347.0 H (25-60) umol/L Total Creatine Kinase 581 H (30-135) units/L CK-MB (CK-2) 12.1 H (0.0-4.0) ng/mL Troponin T 0.127 H* (0.00-0.029) ng/mL NT-Pro-B Natriuret Pep 17133 H (0-900) pg/mL Total Protein 3.2 L (6.3-8.2) g/dL Albumin 1.2 L (3.9-5) g/dL Cholesterol 45 L (50-199) mg/dL LDL Cholesterol Direct 12 L (50-130) mg/dL HDL Cholesterol 8 L (40-59) mg/dL Valproic Acid (50-100) ug/mL Crossmatch 12/16/19 12/16/19 12/16/19 Range/Units 15:49 16:20 18:30 WBC (4.5-11.0) K/mm3 RBC (3.65-5.03) M/mm3 Hgb (10.1-14.3) gm/dl Hct (30.3-42.9) % Seg Neuts % (Manual) (40.0-70.0) % Seg Neutrophils # Man (1.8-7.7) K/mm3 PT (12.2-14.9) Sec. INR (0.87-1.13) ABG HCO3 10.0 L (20.0-26.0) mmol/L ABG O2 Saturation 99.5 H (95.0-99.0) % ABG Base Excess -17.9 L (-2.0-3.0) mmol/L Potassium (3.6-5.0) mmol/L Chloride (98-107) mmol/L Carbon Dioxide (22-30) mmol/L BUN (7-17) mg/dL Creatinine (0.7-1.2) mg/dL Glucose (65-100) mg/dL POC Glucose 256 H (70-105) Calcium (8.4-10.2) mg/dL AST (5-40) units/L Ammonia (25-60) umol/L Total Creatine Kinase (30-135) units/L CK-MB (CK-2) (0.0-4.0) ng/mL Troponin T (0.00-0.029) ng/mL NT-Pro-B Natriuret Pep (0-900) pg/mL Total Protein (6.3-8.2) g/dL Albumin (3.9-5) g/dL Cholesterol (50-199) mg/dL LDL Cholesterol Direct (50-130) mg/dL HDL Cholesterol (40-59) mg/dL Valproic Acid 6.2 L (50-100) ug/mL Crossmatch Assessment and Plan The patient is a 64-year-old female brought into the emergency department after being found down at home. She is in need of an emergent Vas-Cath for dialysis. Her son was given the risk, benefits, and alternative procedures and has consented to the procedure.
--- NOTE | 2019-12-16 19:12 | Operative Report ---
Operative Report Operative Report: Date of Procedure: 12/16/2019 Pre-operative Diagnosis: Acute Renal Failure With Hyperkalemia Post-operative Diagnosis: Same Procedure(s): 1. Ultrasound-Guided Access Left Common Femoral Vein 2. Placement of 30 Cm Trialysis Vas-Cath Surgeon: Dimas Miller M.D. Furnace Loader: None Anesthesia: 2% Lidocaine EBL: Minimal Counts: Correct Complications: None Condition: Critical but Stable Findings: All ports aspirated and flushed at the completion of the case. Specimen: None Indication: The patient is a 64-year-old male who was brought into the emergency department after being found down unconscious. Her work-up revealed acute renal failure with hyperkalemia. She is in need of emergent dialysis. Her son was given the risk, benefits, and alternative procedures and consented to the procedure. Description of Procedure: The procedure was performed in the emergency department at the patient's bedside. After informed consent was obtained a timeout was performed and the patient's left groin was prepped and draped in normal sterile fashion. Ultrasound was used to identify the left common femoral vein and confirm patency. Once patency was confirmed the overlying skin and soft tissue was anesthetized with 2% lidocaine. An 11 blade was used to make a small stab incision and then access needle was used with ultrasound guidance into the left common femoral vein. A 0.035 J-wire was advanced through the needle and the tract was serially dilated and then the Vas-Cath was placed by Seldinger technique. All ports easily aspirated and were flushed with saline. The catheter was primed with the appropriate amount of heparin and then secured in place with 3-0 Ethilon. The Vas-Cath was then dressed with a sterile dressing. The patient tolerated the procedure well and was then transported to the ICU in critical but stable condition.
[2019-12-16 19:53] LABS: ABG Methemoglobin TNR % (0.0-1.5); ABG PO2 382.1 mm Hg (80.0-90.0)
[2019-12-16] MEDS ORDERED: VASOPRESSIN 20 UNIT in SODIUM CHLORIDE 0.9% 100 ML IV SCH (20:00)
[2019-12-16] MEDS ORDERED: SODIUM BICARBONATE 150 MEQ in DEXTROSE 5% IN WATER 1,000 ML IV SCH (20:00)
[2019-12-16 20:13] LABS: Calcium 8.7 mg/dL (8.4-10.2)
[2019-12-16] MEDS ORDERED: NORepinephrine 8 MG in SODIUM CHLORIDE 0.9% 250ML 242 ML IV SCH (21:00)
[2019-12-16] MEDS ORDERED: VANCOMYCIN PHARMACY TO DOSE IV SCH (22:00)
[2019-12-16] MEDS ORDERED: HEPARIN 5,000 UNIT/1 ML VIAL SUB-Q SCH (22:00)
[2019-12-16] MEDS ORDERED: VANCOMYCIN 1,250 MG in SODIUM CHLORIDE 0.9% 250ML 250 ML IV ONE (22:00)
[2019-12-16] MEDS ORDERED: CEFEPIME/NS 1 GM/100 ML 1 GM/100 ML BAG IV SCH ×2 (22:00)
[2019-12-16] MEDS ORDERED: PHENYLEPHRINE 100 MG in SODIUM CHLORIDE 0.9% 90 ML IV SCH (22:45)
[2019-12-16 23:36] VITALS: BP 69/43
--- NOTE | 2019-12-16 23:49 | Event Note ---
Date: 12/16/19 Called to see patient who has been on admission for acute hypoxic respiratory failure, hyperkalemia. She was also made a DNR, On exam: No response to verbal commands or deep sternal rub. Pupils fixed and dilated. Chest- No breath sounds Cardiovascular- no peripheral pulses, no heart sounds Abdomen- soft Extremities- cold and clammy STATION SUPERVISOR- No reflexes. Patient declared at 23:24 pm 12/16/2019. Son at bedside.
--- NOTE | 2019-12-17 07:52 | Death Summary ---
Summary - Providers Date of service: 12/16/19 Consults: 12/16/19 17:12 Consult to Physician [CONS] Urgent Comment: Consulting Provider: ALEKSEY REBOLLAR Physician Instructions: Reason For Exam: Acute renal failure, hyperkalemia 12/16/19 17:16 Consult to Physician [CONS] Urgent Comment: Consulting Provider: MUNIR ALBA Physician Instructions: Reason For Exam: hypoxic resp failure, cardiac arrest 12/16/19 18:11 Consult to Dietitian/Nutrition [CONS] Routine Physician Instructions: Reason For Exam: Reason for Consult: Evaluate nutritional intake Attending: LG COOMBS - summary Date of admission: 12/16/19 17:46 Date of : 12/16/19 Reason for admission: Septic shock,Acute renal failure,Cardiac arrest - Final diagnosis (1) Cardiac arrest Note: Final diagnosis: (2) SHIRLENE (acute kidney injury) Note: Final diagnosis: (3) Septic shock Note: Final diagnosis: (4) Hyperkalemia Note: Final diagnosis: (5) Advance care planning Note: Final diagnosis: - Complications Complications: 64-year-old female present with a chief complaint of decreased responsiveness. The patient's last known well time was approximate 5 days ago when the patient's son spoke with her over the phone. The son states he had not heard from her so he sent someone to check on the patient and the patient was found unresponsive lying on her floor covered in dark-colored stool. Is uncertain how long she has been in this position. EMS transported the patient states she had agonal respirations. Upon arrival to the ED the patient had agonal respirations and was not responding and had a decreased gag reflex, subsequently the decision to intubate using RSI was made. After intubation the patient became bradycardic and then went into cardiac arrest. ACLS protocol were initiated including suspected hyperkalemia from rhabdomyolysis and GI bleed with subsequent return of spontaneous circulation. The patient briefly arrested a second time there was return of spontaneous circulation. (1) Cardiac arrest Status: Acute Plan to address problem: Revived with ACLS protocol (2) SHIRLENE (acute kidney injury) Status: Acute Plan to address problem: Vas cath placed HD initiated but unable to yolerate.Suspended for time being (3) Septic shock Status: Acute Plan to address problem: IV pressors IV Cefepime and IV vancomycin (4) Hyperkalemia Status: Acute Plan to address problem: Treated Code blue around 1900 hrs---Revived Carioresp arrest at 2324 and pronounced at 2324 hrs
== END 2019-12-17 00:04 | DRG 871 ==
LOC: ED 14:56 → CC1 17:46
PROVIDERS: ADMIT Internal Medicine; ATTEND Internal Medicine
PROC: 06HY33Z Insertion of Infusion Device into Lower Vein, Percutaneous Approach (ICD-10-PCS; principal; 2019-12-16)
PROC: 30233N1 Transfusion of Nonautologous Red Blood Cells into Peripheral Vein, Percutaneous Approach (ICD-10-PCS; 2019-12-16)
PROC: 06HY33Z Insertion of Infusion Device into Lower Vein, Percutaneous Approach (ICD-10-PCS; 2019-12-16)
PROC: B54CZZA Ultrasonography of Left Lower Extremity Veins, Guidance (ICD-10-PCS; 2019-12-16)
PROC: 5A1D70Z Performance of Urinary Filtration, Intermittent, Less than 6 Hours Per Day (ICD-10-PCS; 2019-12-16)
PROC: 5A1935Z Respiratory Ventilation, Less than 24 Consecutive Hours (ICD-10-PCS; 2019-12-16)
PROC: 0BH17EZ Insertion of Endotracheal Airway into Trachea, Via Natural or Artificial Opening (ICD-10-PCS; 2019-12-16)
PROC: 4A033R1 Measurement of Arterial Saturation, Peripheral, Percutaneous Approach (ICD-10-PCS; 2019-12-16)
DX: A41.9 Sepsis, unspecified organism (principal); N17.0 Acute kidney failure with tubular necrosis; R65.21 Severe sepsis with septic shock; J96.01 Acute respiratory failure with hypoxia; K92.2 Gastrointestinal hemorrhage, unspecified; N17.9 Acute kidney failure, unspecified; F20.0 Paranoid schizophrenia; D68.9 Coagulation defect, unspecified; E87.5 Hyperkalemia; I10 Essential (primary) hypertension; F17.210 Nicotine dependence, cigarettes, uncomplicated; I46.9 Cardiac arrest, cause unspecified; Z60.2 Problems related to living alone; E83.52 Hypercalcemia; Z82.49 Family history of ischemic heart disease and other diseases of the circulatory system; Z66 Do not resuscitate
CPT/HCPCS: 31500; 36415; 36430; 71045; 80048; 80053; 80061; 80074; 80164; 80320; 82140; 82271; 82550; 82553; 82803; 82962; 83036; 83880; 84484; 85007; 85025; 85610; 85730; 86021; 86160; 86334; 86850; 86900; 86901; 86920; 87040; 93005; 93010; 94002; 94644; 96361; 96365; 96375; 99292; G0378; G0480; J0171; J0461; J0692; J2370; J3010; J3370; J7030; J7042; J7050; J7070; P9016